=== PATIENT | male | born 1990 | race Caucasian/White ===

== ENCOUNTER 2022-10-26 02:57 | Emergency (ER) | payer OTHER, SELFPAY ==
[2022-10-26 03:01] VITALS: BP 130/82; PULSE 68; RESP 18; TEMP 36.5; O2SAT 100; BMI 28.5
--- NOTE | 2022-10-26 03:07 | CT_ITS ---
[place] [id number] Patient Name: MYRON MALIK MRN: [id number] date: 1990 Sex: M Assigned Patient Location: ER Current Patient Location: ED.MAIN Accession/Order Number: [id number] Exam Date: 10/26/2022 03:24 Report Date: 10/26/2022 03:58 At the request of: BIENVENIDO OSHEA Procedure: CT abdomen pelvis wo con CT abdomen pelvis wo con 10/26/2022 3:24 AM EDT CLINICAL INDICATION: Left flank pain COMPARISON: None. TECHNIQUE: CT of abdomen and pelvis without intravenous contrast. Dose reduction techniques were achieved by using automated exposure control and/or adjustment of mA and/or kV according to patient size and/or use of iterative reconstruction technique. FINDINGS: TUBES AND IMPLANTS: None. LOWER CHEST: Unremarkable ABDOMEN and PELVIS ABDOMINAL WALL AND SOFT TISSUES: Unremarkable. BONES: No suspicious lesions. L3 vertebral hemangioma Multilevel mild degenerative changes of the spine. ARTERIES: No aortoiliac aneurysm. Incompletely evaluated VEINS: Incompletely evaluated LYMPH NODES: Unremarkable. PERITONEUM/ RETROPERITONEUM: Trace pelvic fluid BOWEL: Prominent air-filled loop of sigmoid colon with abnormal angulation and diminished caliber of the upstream segment (series 5, image 42). Low position of the cecum in the pelvis without evidence of obstruction. APPENDIX: Unremarkable LIVER: Unremarkable. GALLBLADDER: Unremarkable. BILE DUCTS: Not dilated SPLEEN: Unremarkable. PANCREAS: Unremarkable. ADRENALS: Unremarkable. KIDNEYS/ URETERS: Unremarkable. REPRODUCTIVE ORGANS: Unremarkable URINARY BLADDER: Unremarkable. CT/CT abdomen pelvis wo con IMPRESSION: No evidence of obstructive uropathy. Prominent air-filled loop of sigmoid colon with abnormal angulation and diminished caliber of the upstream segment, this may represent early sigmoid volvulus and close clinical follow-up is recommended. Low position of the cecum in the pelvis without evidence of obstruction. Abnormal trace pelvic fluid which may be reactive. Electronically authenticated by: ROMERO MEEKS Date: 10/26/2022 03:58
[2022-10-26 03:25] LABS: Basophils Absolute Auto 0.1 10^3/uL (0.0-0.1); Basophils Percent Auto 0.7 % (0.2-2.0); Eosinophils Absolute Auto 0.2 10^3/uL (0.0-0.7); Eosinophils Percent Auto 2.6 % (0.9-7.0); Hematocrit 45.3 % (42.0-54.0); Hemoglobin 15.4 g/dL (14.0-18.0); Immature Granulocytes Abs Auto 0.02 10^3/uL (0.00-0.03); Immature Granulocytes Pct Auto 0.3 % (0.0-0.5); Lymphocytes Absolute Auto 1.3 10^3/uL (1.2-3.8); Lymphocytes Percent Auto 19.7 % (20.5-60.0); Mean Corpuscular Hemoglobin 29.6 pg (25.9-34.0); Mean Corpuscular Volume 87.1 fL (80.0-94.0); Mean Platelet Volume 9.9 fL (9.5-13.5); Monocytes Absolute Auto 0.6 10^3/uL (0.3-0.8); Monocytes Percent Auto 8.2 % (1.7-12.0); Neutrophils Absolute Auto 4.7 10^3/uL (1.4-6.5); Neutrophils Percent Auto 68.5 % (43.0-75.0); Platelet Count 220 10^3/uL (150-450); Red Cell Distribution Width 12.6 % (11.0-15.0); White Blood Count 6.8 10^3/uL (4.0-11.0)
[2022-10-26 03:29] LABS: Bilirubin Urine NEGATIVE (NEGATIVE); Blood Urine NEGATIVE (NEGATIVE); Clarity Urine CLEAR (CLEAR); Color Urine LT. YELLOW (YELLOW); Glucose Urine UA NEGATIVE (NEGATIVE); Ketones Urine NEGATIVE (NEGATIVE); Leukocyte Esterase Urine NEGATIVE (NEGATIVE); Nitrite Urine NEGATIVE (NEGATIVE); Protein Urine NEGATIVE (NEG/TRACE); Urobilinogen Urine 0.2 EU/dL (0.2-1.0); pH Urine 6.5 (5.0-9.0)
[2022-10-26 03:30] LABS: Urine Microscopic Indicated NO
[2022-10-26 03:34] LABS: Anion Gap 6.4; Carbon Dioxide 31.3 mmol/L (21.0-32.0); Chloride 105 mmol/L (98-107); Estimated GFR (African America >60 (>=60); Estimated GFR (Non-African Ame >60 (>=60); Glucose 101 mg/dL (74-106); Potassium 3.7 mmol/L (3.5-5.1); Sodium 139 mmol/L (136-145)
[2022-10-26] MEDS: 0.9 % SODIUM CHLORIDE 1,000 ML 999 ML IV (03:36)
[2022-10-26] MEDS: ONDANSETRON PF 4 MG/2 ML VIAL IV (03:37)
[2022-10-26] MEDS: KETOROLAC TROMETHAMINE 30 MG/ML VIAL IVP (03:37)
--- NOTE | 2022-10-26 04:05 | ED.ABDPAIN1 ---
HPI - Abdominal Pain General Chief Complaint: Abdominal Pain Stated Complaint: ABD PAIN Time Seen by Provider: 10/26/22 03:06 Source: patient Mode of arrival: walk-in Limitations: no limitations History of Present Illness HPI narrative: patient developed pain in the left flank a few days ago. Tonight he felt the pain migrate down into the left lower abdomen and into the left scrotum - no scrotal swelling or bruising and manipulation of the scrotum and testicles had no effect on the pain, he told me. No fever or chills. No change in frequency of urine. No recent injury to the flank, abdomen or scrotum. Related Data Home Medications Medication Instructions Recorded Confirmed No Known Home Medications 10/26/22 10/26/22 Previous Rx's Medication Instructions Recorded nabumetone 750 mg tablet 750 mg PO BID PRN pain #20 tabs 10/26/22 Allergies Allergy/AdvReac Type Severity Reaction Status Date / Time No Known Drug Allergies Allergy Verified 10/26/22 03:06 [facility] Social History Smoking status: Never smoker Exam Narrative Exam Narrative: Nurses notes and vital signs reviewed and patient is not hypoxic. afebrile General: Well-appearing and in no apparent distress. Skin: Warm, dry, no pallor noted. No rash. Head: Normocephalic, atraumatic. Eye: Pupils are equal, round and EOMI. No scleral icterus. Cardiovascular: Regular Rate and Rhythm without murmur, gallop or rub. Respiratory: No accessory muscle use or respiratory distress. Lungs are clear to auscultation, no wheezing, rales or rhonchi Back: No midline thoracic or lumbar vertebral tenderness. No CVA tenderness Musculoskeletal: normal RO GI: Abdomen is soft, non-distended. Normal bowel sounds. No masses appreciated. LLQ tenderness to palpation. No rebound, guarding, or rigidity noted. Neurological: A&O x4. No cranial nerve dysfunction observed. No truncal ataxia. Moves all extremities. Sensation intact. Psychiatric: Cooperative and interactive. Normal mood and affect. Constitutional Vital Signs, click to edit/add: Last Vital Signs Temp 97.7 F 10/26/22 03:01 Pulse 68 10/26/22 03:01 Resp 18 10/26/22 03:01 BP 130/82 10/26/22 03:01 Pulse Ox 100 10/26/22 03:01 Course Vital Signs Vital signs: Vital Signs Temperature 97.7 F 10/26/22 03:01 Pulse Rate 68 10/26/22 03:01 Respiratory Rate 18 10/26/22 03:01 Blood Pressure 130/82 10/26/22 03:01 Pulse Oximetry 100 10/26/22 03:01 Temperature 97.7 F 10/26/22 03:01 Pulse Rate 68 10/26/22 03:01 Respiratory Rate 18 10/26/22 03:01 Blood Pressure 130/82 10/26/22 03:01 Pulse Oximetry 100 10/26/22 03:01 MDM - Abdominal Pain MDM Narrative Medical decision making narrative: . Peripheral IV established and blood and urine sent for testing. The patient had CT scanning of the abdomen pelvis without contrast. He was given normal saline IV fluid, IV Toradol and IV Zofran. Blood and urine tests were negative. The patient's CT scan did not show any evidence of obstructive uropathy or kidney stone. The radiologist ideentified findings that could suggest early volvulus but that is not consistent with the patient's presentation. The patient was informed of results, discharged home with recommendation to maintain a clear liquid diet for next twenty-four hours and to return the emergency Department if he acutely worsened. He was given a prescription for Relafen for pain. Lab Data Attestation: I reviewed the patient's lab results. Labs: Lab Results 10/26/22 10/26/22 Range/Units 03:10 03:15 WBC 6.8 (4.0-11.0) 10^3/uL RBC 5.20 (4.70-6.10) 10^6/uL Hgb 15.4 (14.0-18.0) g/dL Hct 45.3 (42.0-54.0) % MCV 87.1 (80.0-94.0) fL MCH 29.6 (25.9-34.0) pg MCHC 34.0 (29.9-35.2) g/dL RDW 12.6 (11.0-15.0) % Plt Count 220 (150-450) 10^3/uL MPV 9.9 (9.5-13.5) fL Neut % (Auto) 68.5 (43.0-75.0) % Lymph % (Auto) 19.7 L (20.5-60.0) % Cameron % (Auto) 8.2 (1.7-12.0) % Eos % (Auto) 2.6 (0.9-7.0) % Baso % (Auto) 0.7 (0.2-2.0) % Neut # (Auto) 4.7 (1.4-6.5) 10^3/uL Lymph # (Auto) 1.3 (1.2-3.8) 10^3/uL Cameron # (Auto) 0.6 (0.3-0.8) 10^3/uL Eos # (Auto) 0.2 (0.0-0.7) 10^3/uL Baso # (Auto) 0.1 (0.0-0.1) 10^3/uL Abs Immat Gran (auto) 0.02 (0.00-0.03) 10^3/uL Imm/Tot Granulo (auto) 0.3 (0.0-0.5) % Sodium 139 (136-145) mmol/L Potassium 3.7 (3.5-5.1) mmol/L Chloride 105 (98-107) mmol/L Carbon Dioxide 31.3 (21.0-32.0) mmol/L Anion Gap 6.4 BUN 15.0 (7.0-18.0) mg/dL Creatinine 1.25 (0.70-1.30) mg/dL Est GFR ( Amer) >60 (>=60) Est GFR (Non-Af Amer) >60 (>=60) BUN/Creatinine Ratio 12.0 Glucose 101 (74-106) mg/dL Calcium 9.0 (8.5-10.1) mg/dL Urine Color Lt. yellow (YELLOW) Urine Clarity Clear (CLEAR) Urine pH 6.5 (5.0-9.0) Ur Specific [place] 1.020 (1.005-1.025) Urine Protein Negative (NEG/TRACE) mg/dL Urine Glucose (UA) Negative (NEGATIVE) mg/dL Urine Ketones Negative (NEGATIVE) mg/dL Urine Occult Blood Negative (NEGATIVE) Urine Nitrite Negative (NEGATIVE) Urine Bilirubin Negative (NEGATIVE) Urine Urobilinogen 0.2 (0.2-1.0) EU/dL Ur Leukocyte Esterase Negative (NEGATIVE) Imaging Data CT scan - abdomen: Radiologist's impression: Patient Name: MYRON MALIK MRN: [id number] date: 1990 Sex: M Assigned Patient Location: ER Current Patient Location: ED.MAIN Accession/Order Number: [id number] Exam Date: 10/26/2022 03:24 Report Date: 10/26/2022 03:58 At the request of: BIENVENIDO OSHEA Procedure: CT abdomen pelvis wo con CT abdomen pelvis wo con 10/26/2022 3:24 AM EDT CLINICAL INDICATION: Left flank pain COMPARISON: None. TECHNIQUE: CT of abdomen and pelvis without intravenous contrast. Dose reduction techniques were achieved by using automated exposure control and/or adjustment of mA and/or kV according to patient size and/or use of iterative reconstruction technique. FINDINGS: TUBES AND IMPLANTS: None. LOWER CHEST: Unremarkable ABDOMEN and PELVIS ABDOMINAL WALL AND SOFT TISSUES: Unremarkable. BONES: No suspicious lesions. L3 vertebral hemangioma Multilevel mild degenerative changes of the spine. ARTERIES: No aortoiliac aneurysm. Incompletely evaluated VEINS: Incompletely evaluated LYMPH NODES: Unremarkable. PERITONEUM/ RETROPERITONEUM: Trace pelvic fluid BOWEL: Prominent air-filled loop of sigmoid colon with abnormal angulation and diminished caliber of the upstream segment (series 5, image 42). Low position of the cecum in the pelvis without evidence of obstruction. APPENDIX: Unremarkable LIVER: Unremarkable. GALLBLADDER: Unremarkable. BILE DUCTS: Not dilated SPLEEN: Unremarkable. PANCREAS: Unremarkable. ADRENALS: Unremarkable. KIDNEYS/ URETERS: Unremarkable. REPRODUCTIVE ORGANS: Unremarkable URINARY BLADDER: Unremarkable. IMPRESSION: No evidence of obstructive uropathy. Prominent air-filled loop of sigmoid colon with abnormal angulation and diminished caliber of the upstream segment, this may represent early sigmoid volvulus and close clinical follow-up is recommended. Low position of the cecum in the pelvis without evidence of obstruction. Abnormal trace pelvic fluid which may be reactive. Electronically authenticated by: ROMERO MEEKS Date: 10/26/2022 03:58 Discharge Plan Discharge Chief Complaint: Abdominal Pain Clinical Impression: Abdominal pain Patient Disposition: Home, Self-Care Time of Disposition Decision: 04:06 Prescriptions / Home Meds: New nabumetone 750 mg tablet 750 mg PO BID PRN (Reason: pain) Qty: 20 0RF No Action No Known Home Medications Instructions: Clear Liquid Diet (ED), Abdominal Pain (ED) Stand Alone Forms: Portal Instructions Referrals: Physician,Non-Staff, MD [Primary Care Provider] - 1 week
== END 2022-10-26 04:21 | disposition home or self-care (01) ==
PROVIDERS: Emergency Provider Emergency Medicine
DX: N45.3 Epididymo-orchitis (principal); R10.9 Unspecified abdominal pain
CPT/HCPCS: 36415; 74176; 80048; 81003; 85025; 96374; 96375; 99285

== ENCOUNTER 2022-10-26 11:50 | Emergency (ER) | payer OTHER, SELFPAY ==
[2022-10-26 11:54] VITALS: BP 143/81; PULSE 84; RESP 18; TEMP 37.3; O2SAT 98; BMI 28.4
--- NOTE | 2022-10-26 12:22 | ED.GENADUL1 ---
HPI - General Adult General Chief complaint: Urogenital-Male Stated complaint: ABDOMINAL PAIN Time Seen by Provider: 10/26/22 11:54 Source: patient Limitations: no limitations History of Present Illness HPI narrative: [age] furled male here complaining of left testicular pain. He was here last evening and had left flank symptomatology. CT scan and urinalysis was done and they did not find any evidence of stones or infection. Since he was here last night the pain is deftly more in his left testicular area. He states he is in a monogamous relationship and has no urethral drainage or discharge or other symptoms. His is the same he states. He's not had any trauma or injury. Is not any blood in his urine. The pain is particularly noticed when he touches the inferior pole of the left testicle. He has no discomfort on the right testicular area. Related Data Home Medications Medication Instructions Recorded Confirmed No Known Home Medications 10/26/22 10/26/22 Previous Rx's Medication Instructions Recorded nabumetone 750 mg tablet 750 mg PO BID PRN pain #20 tabs 10/26/22 Allergies Allergy/AdvReac Type Severity Reaction Status Date / Time No Known Drug Allergies Allergy Verified 10/26/22 03:06 PFSH PFSH Social History Smoking status: Never smoker Exam Narrative Exam Narrative: awake alert does not appear uncomfortable lying flat. Movement seems to increase the pain. Abdominal examination shows the abdomen is flat soft supple no peritoneal findings. No guarding or rebound. Examination genitalia showed the right hemiscrotal contents to be ccompletely normal with no swelling tenderness or sensitivity. The left testicular area at the inferior pole and posterior aspect he's got a lot of tenderness to palpation. Without palpation really the testicle is nontender. There is no evidence of rotation or torsion clinically. There is no urethral drainage or discharge. The rest the perineum is normal in appearance. Constitutional Vital Signs, click to edit/add: Last Vital Signs Temp 99.2 F 10/26/22 11:54 Pulse 84 10/26/22 11:54 Resp 18 10/26/22 11:54 BP 143/81 H 10/26/22 11:54 Pulse Ox 98 10/26/22 11:54 Course Vital Signs Vital signs: Vital Signs Temperature 99.2 F 10/26/22 11:54 Pulse Rate 84 10/26/22 11:54 Respiratory Rate 18 10/26/22 11:54 Blood Pressure 143/81 H 10/26/22 11:54 Pulse Oximetry 98 10/26/22 11:54 Temperature 99.2 F 10/26/22 11:54 Pulse Rate 84 10/26/22 11:54 Respiratory Rate 18 10/26/22 11:54 Blood Pressure 143/81 H 10/26/22 11:54 Pulse Oximetry 98 10/26/22 11:54 Discharge Plan Discharge Chief Complaint: Urogenital-Male Clinical Impression: Orchitis and epididymitis Patient Disposition: Home, Self-Care Time of Disposition Decision: 12:25 Prescriptions / Home Meds: No Action No Known Home Medications nabumetone 750 mg tablet 750 mg PO BID PRN (Reason: pain) Qty: 20 0RF Additional Instructions: Levaquin 500 mg daily. Cold compresses/rest follow-up with Dr. Duron urologist or return if pain symptoms worsen Stand Alone Forms: Portal Instructions Referrals: Physician,Non-Staff, MD [Primary Care Provider] - 1 week
== END 2022-10-26 12:38 | disposition home or self-care (01) ==
PROVIDERS: Emergency Provider Emergency Medicine Emergency Medical Services
DX: N45.3 Epididymo-orchitis (principal)
CPT/HCPCS: 99285

== ENCOUNTER 2022-12-27 19:01 | Outpatient (OUT) | payer OTHER, SELFPAY ==
--- NOTE | 2022-12-27 | US_ITS ---
The [address] [address] Patient Name: MYRON MALIK MRN: [id number] date: 1990 Sex: M Assigned Patient Location: US Current Patient Location: Accession/Order Number: [id number] Exam Date: 12/27/2022 19:00 Report Date: 12/28/2022 07:30 At the request of: MARIANNE NUÑEZ Procedure: US scrotum EXAMINATION: US scrotum HISTORY: PAIN IN LEFT TESTICLE N 50.812 COMPARISON: No relevant comparison available. TECHNIQUE: High-resolution sonographic imaging of the scrotum and contents was performed. FINDINGS: The right testicle is normal in size, contour and echotexture measuring 4.0 x 2.2 x 2.1 cm. No focal mass. Normal color and Doppler flow. The right epididymis is normal in size. Several areas of anechoic echogenicity measuring up to 3 mm, epididymal cyst. Small right hydrocele. No right varicocele. The left testicle is normal in size, contour and echotexture measuring 4.1 x 1.9 x 2.6 cm. No focal mass. Normal color and Doppler flow. The left epididymis is normal in size. Several areas of anechoic echogenicity measuring up to 7 mm, epididymal cyst. Small right hydrocele. No right varicocele. US/US scrotum IMPRESSION: No evidence of testicular torsion Small bilateral hydroceles Electronically authenticated by: BAN HERNANDEZ Date: 12/28/2022 07:30
== END 2022-12-27 19:02 | disposition home or self-care (01) ==
LOC: US 19:01
PROVIDERS: PCP Internal Medicine; Visit Provider Urology
DX: N50.812 Left testicular pain (principal); N43.3 Hydrocele, unspecified
CPT/HCPCS: 76870

== ENCOUNTER 2023-07-12 07:12 | Outpatient (OUT) | payer OTHER, SELFPAY ==
--- OUTSIDE RECORDS SUMMARY | 2023-07-12 07:14 | XMS_ITS | CCD ---
Author Organization [facility] Care Team Providers Care Belt Sander Name Role Phone GRZEGORZ CASTANEDA Primary Care Physician Grzegorz Castaneda Unavailable Sergio NUÑEZ Attending Unavailable Sergio NUÑEZ Attending Unavailable Sergio NUÑEZ Attending Unavailable Allergies Allergy Classification Reported Allergen(s) Allergy Type Date of Onset Reaction(s) Facility (1 source) No Known Medication Allergies; Translations: [No Known Medication Allergies] Propensity to adverse reactions (disorder) [facility] Repository Medications Current Medications Medication Drug Class(es) Dates Sig (Normalized) Sig (Original) levoFLOXacin 500 mg oral tablet (1 source) Quinolone Antimicrobial Start: 11-05-2022 take 1 tablet by mouth once daily Levaquin 500 mg Tab 500 mg = 1 tab(s), Oral, Daily, # 14 tab(s), Refills(s) 0, Pharmacy: [id number], 183, cm, 11/05/22 10:46:00 EDT, Height/Length Dosing, 95.5, kg, 11/05/22 10:46:00 EDT, Weight Dosing Start Date: 11/05/22 Status: Ordered Completed/Discontinued Medications Medication Drug Class(es) Dates Sig (Normalized) Sig (Original) azithromycin 250 mg oral tablet (1 source) Macrolide Antimicrobial Start: 11-10-2020 take 1 tablet by mouth once daily Azithromycin 250 MG Azithromycin 250MG, 2 (two) Tablet today followed by 1 daily # 6, 11/10/2020, No Refill. Active Oral today followed by 1 daily for 5 Oct, Not-Taking Problems Active Problems Problem Classification Problem Date Documented Da te Episodic/Chronic Anxiety disorders (2 sources) Generalized anxiety disorder; Translations: [Generalized anxiety disorder] 07-04-2023 Chronic Esophageal disorders (1 source) Esophageal reflux finding; Translations: [Esophageal reflux] Onset: 08-10-2014 Chronic Inflammatory conditions of male genital organs (7 sources) Epididymitis; Translations: [Epididymitis] Onset: 11-05-2022 Episodic Other gastrointestinal disorders (1 source) Dysphagia; Translations: [Dysphagia, unspecified] 07-04-2023 Episodic Other gastrointestinal disorders (1 source) Dysphagia, unspecified; Translations: [Dysphagia, unspecified] 07-04-2023 Episodic Other male genital disorders (2 sources) Pain of left testicle 11-05-2022 Episodic Residual codes; unclassified (1 source) Insomnia; Translations: [Insomnia, unspecified] 07-04-2023 Episodic Residual codes; unclassified (1 source) Insomnia, unspecified; Translations: [Insomnia, unspecified] 07-04-2023 Episodic Viral infection (1 source) Disease caused by 2019-nCoV; Translations: [COVID-19] Past or Other Problems Problem Classification Problem Date Documented Da te Episodic/Chronic Cardiac dysrhythmias (1 source) Palpitations; Translations: [Palpitations] Onset: 08-10-2014 Episodic Nonspecific chest pain (1 source) Chest pain; Translations: [Other chest pain] Onset: 05-08-2016 Resolved: 11-10-2020 Episodic Results Test Name Value Interpretation Reference Range Facil ity Ambulatory Visit Summaryon 1 03-10-2022 Ambulatory Visit Summary HELENAMYRON :1990 Visit Date:01/08/2023 Ambulatory Visit Instructions Your Diagnosis Epididymitis Tests Performed Urnls Dip Stick Auto w/o Microscopy POC 10405 Your Care Team Attending Physician - Sergio NUÑEZ MD Primary Care Physician - GRZEGORZ CASTANEDA DO Procedures Performed None. Discharge Vitals Heart Rate (Peripheral) 72 Blood Pressure 144/90 Height 72 in Height 183 cm Weight 210.1 lb Weight 95.5 kg BMI 28.52 What to do next You Need to Schedule the Following Appointments Follow Up with JOAQUIN TENA, Sergio Morrison, [place] When: Comments: PRN Where: [facility] [address] , [place] [address]- Test Results Urnls Dip Stick Auto w/o Microscopy POC 15226 (01/08/2023) Bilirubin Urine Dipstick - Negative Blood Urine Dipstick - Negative Glucose Urine Dipstick - Negative Ketones Urine Dipstick - Negative Leukocytes Urine Dipstick - Negative Nitrite Urine Dipstick - Negative Protein Urine Dipstick - Negative Specific [place] Urine Dipstick - 1.015 Urine Appearance Urine Dipstick - Clear Urine Color Urine Dipstick - Yellow Urobilinogen Urine Dipstick - Normal 0.2-1 EU/dl pH Urine Dipstick - 7 Medications and Immunizations Administered Not Given influenza virus vaccine, inactivated, Patient Refuses SARS-CoV-2 mRNA (tozinameran 5y-11y) vac, Patient Refuses Allergies No Known Medication Allergies Problems Ongoing - Any problem that you are currently receiving treatment for. Epididymitis Orchitis Pain in left testicle Patient Survey You may receive a survey via text or e-mail asking about your office visit. Please share your experience with us by completing your survey. We appreciate your feedback and thank you for choosing us for your care. Education Materials Testicular Self-Exam A self-examination of your testicles (testicular self-exam) involves looking at and feeling your testicles for abnormal lumps or swelling. Several things can cause swelling, lumps, or pain in your testicles. Some of these causes are: ? Injuries. ? Inflammation. ? Infection. ? Buildup of fluids around the testicle (hydrocele). ? Twisted testicles (testicular torsion). ? Testicular cancer. You may be at risk for testicular cancer if you have: ? An undescended testicle (cryptorchidism). ? A history of previous testicular cancer. ? A family history of testicular cancer. General tips and recommendations ? The testicles are easiest to examine after a warm bath or shower. They are more difficult to examine when you are cold because the muscles attached to the testicles retract and pull them up higher or into the abdomen. ? A normal testicle is egg-shaped and feels firm. It is smooth and not tender. ? It is normal to feel a firm, spaghetti-like cord at the back of your testicle. This is the spermatic cord. How to do a testicular self-exam 1. Stand and hold your penis away from your body. 2. Look at each testicle to check for changes in appearance, such as swelling or changes in size or shape. 3. Roll each testicle between your thumb and forefinger, feeling the entire testicle. Feel for: ? Lumps. ? Swelling. ? Discomfort. 4. Check the groin area between your abdomen and upper thighs on both sides of your body. Look and feel for any swelling or bumps that are tender. These could be enlarged lymph nodes. Contact a health care provider if: ? You find any bumps or lumps, such as a small, hard, pea-sized lump. ? You find swelling, pain, or soreness. ? You see or feel any other changes in your testicles. Summary ? A self-examination of your testicles (testicular self-exam) involves looking at and feeling your testicles for any changes. ? Check each of your testicles for lumps, swelling, or discomfort. These changes can be caused by many things. ? Check for swelling or tender bumps in your groin area between your lower abdomen and upper thighs. This information is not intended to replace advice given to you by your health care provider. Make sure you discuss any questions you have with your health care provider. Document Revised: 01/18/2020 Document Reviewed: 01/18/2020 [employer] Patient Education ? 2022 [employer] Normal [facility] Patient Educationon 01-09-20 Patient Education Urology Testicular Self-Exam A self-examination of your testicles (testicular self-exam) involves looking at and feeling your testicles for abnormal lumps or swelling. Several things can cause swelling, lumps, or pain in your testicles. Some of these causes are: ? Injuries. ? Inflammation. ? Infection. ? Buildup of fluids around the testicle (hydrocele). ? Twisted testicles (testicular torsion). ? Testicular cancer. You may be at risk for testicular cancer if you have: ? An undescended testicle (cryptorchidism). ? A history of previous testicular cancer. ? A family history of testicular cancer. General tips and recommendations ? The testicles are easiest to examine after a warm bath or shower. They are more difficult to examine when you are cold because the muscles attached to the testicles retract and pull them up higher or into the abdomen. ? A normal testicle is egg-shaped and feels firm. It is smooth and not tender. ? It is normal to feel a firm, spaghetti-like cord at the back of your testicle. This is the spermatic cord. How to do a testicular self-exam 1. Stand and hold your penis away from your body. 2. Look at each testicle to check for changes in appearance, such as swelling or changes in size or shape. 3. Roll each testicle between your thumb and forefinger, feeling the entire testicle. Feel for: ? Lumps. ? Swelling. ? Discomfort. 4. Check the groin area between your abdomen and upper thighs on both sides of your body. Look and feel for any swelling or bumps that are tender. These could be enlarged lymph nodes. Contact a health care provider if: ? You find any bumps or lumps, such as a small, hard, pea-sized lump. ? You find swelling, pain, or soreness. ? You see or feel any other changes in your testicles. Summary ? A self-examination of your testicles (testicular self-exam) involves looking at and feeling your testicles for any changes. ? Check each of your testicles for lumps, swelling, or discomfort. These changes can be caused by many things. ? Check for swelling or tender bumps in your groin area between your lower abdomen and upper thighs. This information is not intended to replace advice given to you by your health care provider. Make sure you discuss any questions you have with your health care provider. Document Revised: 01/18/2020 Document Reviewed: 01/18/2020 [employer] Patient Education ? 2022 [employer] [facility] Urology Office/Clinic Noteon 01-08-2023 Urology Office/Clinic Note Chief Complaint 2 month follow up HPI Staff 2 month follow up w/Scrotum US done 12/27/22-[facility]. Previous DX: epididymitis, orchitis, pain in testicle. Dysuria: denies pain or burning Incomplete bladder emptying: denies Hematuria: denies visible blood Frequency: denies Urgency: denies Nocturia: denies Stream: denies hesitancy, denies weak stream Leaking: denies Post void dripping: denies Wearing pads/ Depends: denies Urge incontinence: denies Stress incontinence: denies Incontinence without Sensory Awareness: denies Abdominal pain: denies Flank pain: denies Sexual complaints: denies History of Present Illness Tests reviewed: reviewed UA and Scrotal US. I have reviewed the previous health record information and history for this patient from . I have reviewed and verified the staff HPI to be accurate for this encounter. There have been no associated fever, chills, flank pain, or blood in the urine. Denies any urinary infections since last encounter. Review of Systems PHQ Score Initial Depression Screen Score: 0 SCORE ROS - Provider Constitutional: denies weight loss, denies hot flashes. Eyes: denies eye problems. Gastrointestinal: denies nausea, denies vomiting. Cardiovascular: denies chest pain or angina. Integumentary: no dryness Musculoskeletal: denies musculoskeletal symptoms. ENMT: denies otolaryngeal symptoms. Respiratory: no shortness of breath. Heme/Lymph: denies easy bleeding tendency, denies easy bruising tendency. Psychiatric: no confusion, no anxiety. Genitourinary: See HPI. Physical Exam Vitals & Measurements HR: 72(Peripheral) BP: 144/90 HT: 72 in HT: 183 cm WT: 95.5 kg WT: 210.1 lb BMI: 28.52 General Appearance: alert, no distress, well nourished, well developed male. Genitourinary: normal scrotum, normal testes, normal urethra, normal epididymis, normal vas deferens/spermatic cord. Assessment/Plan 1. Epididymitis (N45.1: Epididymitis) Pt went to [facility] ER on 10/26/22 pain lower back on the left side traveled to pelvis and abdomen area left side, then toward left testicle when he would void. Denies pain and swelling in left testicle. Pt went back to ER pt has a prescribed Levaquin [id number] has finished this medication yesterday. Hasn't had any pain meds in the 24 hours. Pt states that his left testicle was tender to the touch, he had no swelling or discoloration. CT SCAN 10/26/22 - no signs of obstructive uropathy, abnormal trace pelvic fluid which may be reactive. Pt had taken Levaquin 500mg QD x14 days. Scrotal US 12/27/22 - epididymal cyst measuring 3mm on the Rt and 7mm on the Lt, small BL hydrocele. UA today is negative for blood and infection. PE 11/05/22:firmness at the tail of the Lt epididymis, indurated 2cm area, difficult to tell if it is separate from the testicle PE today: everything is normal Pt states that he no longer has pain and noticed the swelling had gone down since finishing the abx. Advised pt that he should make sure he empties his bladder every day every 2-3 hours to prevent any further epididymitis. Follow up in as needed. All questions/concerns were discussed. Pt to call the office if he encounters any issues prior. Pt acknowledges understanding. -Timed Voids. Follow-up With When Contact Information JOAQUIN TENA, Sergio Morrison, URL [facility] [address], [place] [address]- Additional Instructions: PRN Patient Education Testicular Self-Exam I, Catherine Tello , personally scribed for Dr. Nuñez on 01/08/2023 10:32:44. . Portions of this record may have been created with voice recognition artificial intelligence software, specifically [employer], [employer] and or [employer]. Substitutions may have occurred due to the inherent limitations of voice recognition and artificial intelligence software. Documentation recorded by the scribe, Catherine Tello, accurately reflects the services(s) I performed and decisions made by me. Problem List/Past Medical History Ongoing Epididymitis Orchitis Pain in left testicle Historical No qualifying data Procedure/Surgical History None. Medications No active medications Allergies No Known Medication Allergies Social History Tobacco Never (less than 100 in lifetime) Tobacco Use:. Never Smokeless Tobacco Use:., 01/08/2023 Family History Heart disease: Brother. Hypertension: Grandparent. Immunizations Vaccine Date Status Comments influenza virus vaccine, inactivated - Not Given Patient Refuses SARS-CoV-2 mRNA (tojaimeenameran 5y-11y) vac - Not Given Patient Refuses measles/mumps/rubella virus vaccine 05/14/2000 Recorded DTaP, unspecified formulation 04/03/1993 Recorded Hib, unspecified formulation 10/25/1989 Recorded measles/mumps/rubella virus vaccine 06/24/1989 Recorded Lab Results Ambulatory Point of Care Results Bilirubin Urine Dipstick (more content not included)... Normal [facility] Comment on above: Result Comment: Elec tronically Signed By: JOAQUIN TENA, Sergio Morrison\.br\Date and Time Signed: 01/08/23 10:35 EST\.br\Electronically Co-Signed By: Catherine Tello\.br\Date and Time Co-Signed: 01/08/23 10:33 EST RAD - Ultrasound Reporton RAD - Ultrasound Report [id number] 0TIFF [facility] ED Note-Physicianon 11-07-19 ED Note-Physician [id number] 0CD:127 [facility] RAD - CT Reporton 11-06-2022 RAD - CT Report [id number] CD:127 [facility] Ambulatory Visit Summaryon 0 11-05-2022 Ambulatory Visit Summary MYRON MALIK :1990 Visit Date:11/05/2022 Ambulatory Visit Instructions Your Diagnosis Epididymitis Tests Performed Urnls Dip Stick Auto w/o Microscopy POC 07023 US Scrotum (Contents) -- Results Pending -- Please visit your patient portal for your results or contact your primary care physician. Your Care Team Attending Physician - Sergio NUÑEZ MD Primary Care Physician - GRZEGORZ CASTANEDA DO This Is Your Medications List levofloxacin (Levaquin 500 mg Tab) Procedures Performed None. Discharge Vitals Heart Rate (Peripheral) 65 Blood Pressure 129/93 Height 183 cm Height 72 in Weight 95.5 kg Weight 210.1 lb BMI 28.52 What to do next Scheduled Follow-Up Appointments Saturday 10:30 AM EST With: Sergio NUÑEZ MD Where: [facility] Formson 11-05-2022 Forms [id number] 0CD:127 [facility] Patient Educationon 11-06-19 Patient Education Obstetrics and Gynecology How to Take a Sitz Bath A sitz bath is a warm water bath that may be used to care for your rectum, genital area, or the area between your rectum and genitals (perineum). In a sitz bath, the water only comes up to your hips and covers your buttocks. A sitz bath may be done in a bathtub or with a portable sitz bath that fits over the toilet. Your health care provider may recommend a sitz bath to help: ? Relieve pain and discomfort after delivering a baby. ? Relieve pain and itching from hemorrhoids or anal fissures. ? Relieve pain after certain surgeries. ? Relax muscles that are sore or tight. How to take a sitz bath Take 3?4 sitz baths a day, or as many as told by your health care provider. Bathtub sitz bath To take a sitz bath in a bathtub: 1. Partially fill a bathtub with warm water. The water should be deep enough to cover your hips and buttocks when you are sitting in the tub. 2. Follow your health care provider's instructions if you are told to put medicine in the water. 3. Sit in the water. Open the tub drain a little, and leave it open during your bath. 4. Turn on the warm water again, enough to replace the water that is draining out. Keep the water running throughout your bath. This helps keep the water at the right level and temperature. 5. Soak in the water for 15?20 minutes, or as long as told by your health care provider. 6. When you are done, be careful when you stand up. You may feel dizzy. 7. After the sitz bath, pat yourself dry. Do not rub your skin to dry it. [id number] sitz bath To take a sitz bath with an [id number] basin: 1. Follow the vending mechanic's instructions. 2. Fill the basin with warm water. 3. Follow your health care provider's instructions if you were told to put medicine in the water. 4. Sit on the seat. Make sure the water covers your buttocks and perineum. 5. Soak in the water for 15?20 minutes, or as long as told by your health care provider. 6. After the sitz bath, pat yourself dry. Do not rub your skin to dry it. 7. Clean and dry the basin between uses. 8. Discard the basin if it cracks, or according to the vending mechanic's instructions. Contact a health care provider if: ? Your pain or itching gets worse. Do not continue with sitz baths if your symptoms get worse. ? You have new symptoms. Do not continue with sitz baths until you talk with your health care provider. Summary ? A sitz bath is a warm water bath in which the water only comes up to your hips and covers your buttocks. ? A sitz bath may help relieve pain and discomfort after delivering a baby. It also may help with pain and itching from hemorrhoids or anal fissures, or pain after certain surgeries. It can also help to relax muscles that are sore or tight. ? Take 3?4 sitz baths a day, or as many as told by your health care provider. Soak in the water for 15?20 minutes. ? Do not continue with sitz baths if your symptoms get worse. This information is not intended to replace advice given to you by your health care provider. Make sure you discuss any questions you have with your health care provider. Document Revised: 10/25/2020 Document Reviewed: 10/27/2020 [employer] Patient Education ? 2022 [employer] Urology Testicular Self-Exam A self-examination of your testicles (testicular self-exam) involves looking at and feeling your testicles for abnormal lumps or swelling. Several things can cause swelling, lumps, or pain in your testicles. Some of these causes are: ? Injuries. ? Inflammation. ? Infection. ? Buildup of fluids around the testicle (hydrocele). ? Twisted testicles (testicular torsion). ? Testicular cancer. You may be at risk for testicular cancer if you have: ? An undescended testicle (cryptorchidism). ? A history of previous testicular cancer. ? A family history of testicular cancer. General tips and recommendations ? The testicles are easiest to examine after a warm bath or shower. They are more difficult to examine when you are cold because the muscles attached to the testicles retract and pull them up higher or into the abdomen. ? A normal testicle is egg-shaped and feels firm. It is smooth and not tender. ? It is normal to feel a firm, spaghetti-like cord at the back of your testicle. This is the spermatic cord. How to do a testicular self-exam 1. Stand and hold your penis away from your body. 2. Look at each testicle to check for changes in appearance, such as swelling or changes in size or shape. 3. Roll each testicle between your thumb and forefinger, feeling the entire testicle. Feel for: ? Lumps. ? Swelling. ? Discomfort. 4. Check the groin area between your abdomen and upper thighs on both sides of your body. Look and feel for any swelling or bumps that are tender. These could be enlarged lymph nodes. Contact a health care p (more content not included)... Normal [facility] Urology Office/Clinic Noteon 11-05-2022 Urology Office/Clinic Note Chief Complaint New Pt HPI Staff ER F/U. Never been seen in our office before. Pt went to [facility] ER on 10/26/22 pain lower back on the left side traveled to pelvis and abdomen area left side, then toward left testicle. Denies pain and swelling in left testicle. Pt went back to ER pt has a prescribed Levaquin-pt has finished this medication yesterday. Espinoza't had any pain meds in the [address] SCAN done 10/26/22 Dysuria: denies pain or burning Incomplete bladder emptying: denies Hematuria: denies visible blood Frequency: denies Urgency: denies Nocturia: once in awhile Stream: denies hesitancy, denies weak stream Leaking: denies Post void dripping: denies Wearing pads/ Depends: denies Urge incontinence: denies Stress incontinence: Xavi Incontinence without Sensory Awareness: denies Abdominal pain: has some discomfort on left sided Flank pain: denies Sexual complaints: denies History of Present Illness Tests reviewed: reviewed UA and External Records. I have reviewed the previous health record information and history for this patient from . I have reviewed and verified the staff HPI to be accurate for this encounter. There have been no associated fever, chills, flank pain, or blood in the urine. Denies any urinary infections since last encounter. Review of Systems PHQ Score Initial Depression Screen Score: 0 ROS - Provider Constitutional: denies weight loss, denies hot flashes. Eyes: denies eye problems. Gastrointestinal: denies nausea, denies vomiting. Cardiovascular: denies chest pain or angina. Integumentary: no dryness Musculoskeletal: denies musculoskeletal symptoms. ENMT: denies otolaryngeal symptoms. Respiratory: no shortness of breath. Heme/Lymph: denies easy bleeding tendency, denies easy bruising tendency. Psychiatric: no confusion, no anxiety. Genitourinary: See HPI. Physical Exam Vitals & Measurements HR: 65(Peripheral) BP: 129/93 HT: 72 in HT: 183 cm WT: 95.5 kg WT: 210.1 lb BMI: 28.52 General Appearance: alert, no distress, well nourished, well developed male. Head: normocephalic . Eyes: normal orbit and globe. ENMT: normal examination of external ears. Chest: Lungs CTA, respirations non labored. Cardiovascular: regular rate and rhythm. Abdomen: soft, non distended, no tenderness, no mass or organomegaly, no hernia. Genitourinary: normal scrotum, normal testes, normal urethra, firmness at the tail of the Lt epididymis, indurated 2cm area, difficult to tell if it is separate from the testicle epididymis, normal vas deferens/spermatic cord. Flank Pain: none. Bladder: nonpalpable. Penis: normal shaft, normal glans. Lymph Nodes: unremarkable palpation of the cervical area. Skin: warm, dry, no bruising. Psychiatric: cooperative, affect appropriate for age, normal judgement, euthymic mood. Assessment/Plan 1. Epididymitis (N45.1: Epididymitis) Pt went to [facility] ER on 10/26/22 pain lower back on the left side traveled to pelvis and abdomen area left side, then toward left testicle when he would void. Denies pain and swelling in left testicle. Pt went back to ER pt has a prescribed Levaquin [id number] has finished this medication yesterday. Hasn't had any pain meds in the 24 hours. Pt states that his left testicle was tender to the touch, he had no swelling or discoloration. CT SCAN 10/26/22 - no signs of obstructive uropathy, abnormal trace pelvic fluid which may be reactive. Pt states that he did not have urinary sxs, only abdominal pain. he did not pass any stone. Pt states that on the 3rd or 4th day of being on the abx, he noticed the pain decrease. Pt states that he never had any urinary sxs prior to this episode of pain, felt he emptied completely, would void x3-4hrs, denies any leakage. Pt states that he does self exam on occasion. Discussed getting a Scrotal US done. Discussed starting a longer dose of abx. Advised pt to eat yogurt to prevent any SE's. Advised pt that this could be caused by not voiding regularly and waiting too long in between voids. Advised pt to stat timed voids. Advised pt that this is inflammatory sxs of the epididymis. Advised pt that this is not likely testicular cancer, but since a clear separation cannot be demonstrated from mass and testicle, he will need a scrotal echo. UA today is negative for blood and infection. PE:firmness at the tail of the Lt epididymis, indurated 2cm area, difficult to tell if it is separate from the testicle -Will order Scrotal US. -Will send Levaquin 500mg QD x14 days. Discussed the medication side effects, and the patient will monitor closely for these, as well as for symptom improvement. If severe side effects occur, the medication should be stopped and the office notified. -Start Timed Voids. Follow up in 2 mos w/Srcotal US. All questions/concerns were discussed. Pt to call the office if he encounters any issues prior. Pt acknowledges understanding. Follow-up With When Contact Information JOAQUIN TENA, (more content not included)... Normal [facility] Comment on above: Result Comment: Elec tronically Signed By: Sergio NUÑEZ MD\.br\Date and Time Signed: 11/05/22 11:35 EDT\.br\Electronically Co-Signed By: Catherine Tello.br\Date and Time Co-Signed: 11/05/22 11:20 EDT Vital Signs Date Time Vital Sign Value Performing Clinician Facility 07-04-2023 10:36040 Body height 182.88 cm [facility] 07-04-2023 10:36040 Body mass index (BMI) [Ratio] 29.1 kg/m2 [facility] 07-04-2023 10:36040 Body weight 97.52 kg [facility] 07-04-2023 10:36040 Diastolic blood pressure 87 mm[Hg] [facility] 07-04-2023 10:36-0400 Heart rate 69 /min [facility] 07-04-2023 10:36-0400 Respiratory rate 12 /min [facility] 07-04-2023 10:36-0400 Systolic blood pressure 125 mm[Hg] [facility] 01-08-2023 10:02-0500 Diastolic blood pressure 90 mm[Hg] Sergio NUÑEZ [facility] 01-08-2023 10:02-0500 Mean blood pressure 108 mm[Hg] Sergio NUÑEZ [facility] 01-08-2023 10:02-0500 Systolic blood pressure 144 mm[Hg] Sergio NUÑEZ [facility] 01-08-2023 09:52-0500 Blood Pressure Location Sergio NUÑEZ [facility] 01-08-2023 09:52-0500 Diastolic blood pressure 100 mm[Hg] Sergio NUÑEZ [facility] 01-08-2023 09:52-0500 Heart rate 72 /min Sergio NUÑEZ [facility] 01-08-2023 09:52-0500 Systolic blood pressure 144 mm[Hg] Sergio NUÑEZ [facility] 11-28-2022 14:00-0400 Body height 182.88 cm Grzegorz Castaneda Other [employer] [facility] [employer] Other 11-28-2022 14:00-0400 Body mass index (BMI) [Ratio] 29.32 kg/m2 Grzegorz Ball Other [employer] [facility] [employer] Other 11-28-2022 14:00-0400 Body weight 98.07 kg Grzegorz Castaneda Other [employer] Other 11-28-2022 14:00-0400 Diastolic blood pressure 79 mm[Hg] Grzegorz Castaneda Other [employer] Other 11-28-2022 14:00-0400 Respiratory rate 12 /min Grzegorz Castaneda Other [employer] Other 11-28-2022 14:00-0400 Systolic blood pressure 124 mm[Hg] Grzegorz Castaneda Other [employer] Other 11-05-2022 10:27-0400 Blood Pressure Location Sergio NUÑEZ [facility] 11-05-2022 10:27-0400 Diastolic blood pressure 93 mm[Hg] Sergio NUÑEZ [facility] 11-05-2022 10:27-0400 Heart rate 65 /min Sergio NUÑEZ [facility] 11-05-2022 10:27-0400 Systolic blood pressure 129 mm[Hg] Sergio NUÑEZ [facility] Encounters Encounter Date Encounter Type Care Provider Facility Start: 07-04-2023 End: 07-04-2023 ambulatory [facility] Work Phone: Start: 07-04-2023 End: 07-04-2023 Patient encounter procedure [facility]ANABELLA Castaneda [facility] Work Phone: Start: 01-08-2023 End: 01-09-2023 ambulatory Sergio NUÑEZ Facility:[facility] Start: 01-08-2023 End: 01-08-2023 Patient encounter procedure Sergio NUÑEZ [facility] Start: 01-07-2023 ambulatory Sergio NUÑEZ Facili ty:[facility] Start: 11-28-2022 End: 11-28-2022 ambulatory Grzegorz Castaneda Other [facility] [employer] Other Start: 11-28-2022 Encounter for genera l adult medical examination without abnormal findings Grzegorz Castaneda [facility] Start: 11-28-2022 Periodic preventive med est patient 18-39 yrs Grzegorz Castaneda [facility] Start: 11-05-2022 End: 11-06-2022 ambulatory Sergio NUÑEZ Facility:[facility] Start: 11-05-2022 End: 11-05-2022 Patient encounter procedure [facility] Start: 10-30-2022 ambulatory Sergio NUÑEZ Facility :[facility] Procedures Date Procedure Procedure Detail Performing Clinician None (qualifier value) Kimberyln NUÑEZ Plan of Treatment Date Care Activity Detail Author [facility] Immunizations Immunization Date Immunization Notes Care Provider Haley basurto 05-14-2000 measles, mumps and rubella virus vaccine Sergio NUÑEZ [facility] 04-03-1993 DTaP, unspecified formulation Sergio NUÑEZ [facility] 10-25-1989 Hib, unspecified formulation Sergiokristel NUÑEZ [facility] 06-24-1989 measles, mumps and rubella virus vaccine Sergiokristel UNÑEZ [facility] NEGATED: Highlighted row has not occurred!01-08-2023 influenza virus vaccine, unspecified formulation Sergiokristel NUÑEZ [facility] NEGATED: Highlighted row has not occurred!01-08-2023 SARS-CoV-2 mRNA (tozinameran 5y-11y) vaccine Sergio NUÑEZ [facility] Payers Date Payer Category Payer Unknown [id number] 2020 Unknown [id number] 1988 Unknown [id number] 1988 Unknown [id number] 1988 Unknown [id number] Social History Date Type Detail Facility Start: 11-05-2022 End: 01-08-2023 Tobacco smoking status Never smoked tobacco (finding) [facility] Tobacco smoking status Never [facility] Sex Assigned At Male [facility] Start: 1990 Sex Assigned At Male F [facility] Functional Status Date Assessment Result Facility 01-08-2023 Functional Status N/A [facility] 11-05-2022 Functional Status N/A [facility] Discharge instructions 01-08-2023 Note Date & Type Note Facility 01-08-2023 Hospital Discharg e instructions Patient Education 01/08/2023 10:32:04 Testicular Self-Exam Testicular Self-Exam A self-examination of your testicles (testicular self-exam) involves looking at and feeling your testicles for abnormal lumps or swelling. Several things can cause swelling, lumps, or pain in your testicles. Some of these causes are: Injuries. Inflammation. Infection. Buildup of fluids around the testicle (hydrocele). Twisted testicles (testicular torsion). Testicular cancer. You may be at risk for testicular cancer if you have: ?An undescended testicle (cryptorchidism). ?A history of previous testicular cancer. ?A family history of testicular cancer. General tips and recommendations The testicles are easiest to examine after a warm bath or shower. They are more difficult to examine when you are cold because the muscles attached to the testicles retract and pull them up higher or into the abdomen. A normal testicle is egg-shaped and feels firm. It is smooth and not tender. It is normal to feel a firm, spaghetti-like cord at the back of your testicle. This is the spermatic cord. How to do a testicular self-exam 1.Stand and hold your penis away from your body. 2.Look at each testicle to check for changes in appearance, such as swelling or changes in size or shape. 3.Roll each testicle between your thumb and forefinger, feeling the entire testicle. Feel for: Lumps. Swelling. Discomfort. 4.Check the groin area between your abdomen and upper thighs on both sides of your body. Look and feel for any swelling or bumps that are tender. These could be enlarged lymph nodes. Contact a health care provider if: You find any bumps or lumps, such as a small, hard, pea-sized lump. You find swelling, pain, or soreness. You see or feel any other changes in your testicles. Summary A self-examination of your testicles (testicular self-exam) involves looking at and feeling your testicles for any changes. Check each of your testicles for lumps, swelling, or discomfort. These changes can be caused by many things. Check for swelling or tender bumps in your groin area between your lower abdomen and upper thighs. This information is not intended to replace advice given to you by your health care provider. Make sure you discuss any questions you have with your health care provider. Document Revised: 01/18/2020 Document Reviewed: 01/18/2020 [employer] Patient Education 2022 [employer] Follow Up Care 12/14/2022 10:33:52 With:JOAQUIN TENA, Sergio Morrison, URL Address: [facility] [address] , [place] [address]- When: Unknown Comments:PRN [facility] Evaluation note 10-04-2023 Note Date & Type Note Facility 11-28-2022 Evaluation note Encounter Date Diagnosis Assessment Notes Nov, Wellness examination (ICD-10 - Z00.00) Healthy diet and exercise. Reviewed age-appropria te preventive testing recommended. BS normal CHol normal Nov, Epididymitis (ICD-10 - N45.1) Symptoms resolved as expected on antibiotics. Scrotal US scheduled soon. f/u as needed [facility] Other Hospital Discharge instructions 11-05-2022 Note Date & Type Note Facility 11-05-2022 Hospital Discharg e instructions Patient Education 11/05/2022 11:15:53 How to Take a Sitz Bath How to Take a Sitz Bath A sitz bath is a warm water bath that may be used to care for your rectum, genital area, or the area between your rectum and genitals (perineum). In a sitz bath, the water only comes up to your hips and covers your buttocks. A sitz bath may be done in a bathtub or with a portable sitz bath that fits over the toilet. Your health care provider may recommend a sitz bath to help: Relieve pain and discomfort after delivering a baby. Relieve pain and itching from hemorrhoids or anal fissures. Relieve pain after certain surgeries. Relax muscles that are sore or tight. How to take a sitz bath Take 3 4 sitz baths a day, or as many as told by your health care provider. Bathtub sitz bath To take a sitz bath in a bathtub: 1.Partially fill a bathtub with warm water. The water should be deep enough to cover your hips and buttocks when you are sitting in the tub. 2.Follow your health care provider's instructions if you are told to put medicine in the water. 3.Sit in the water. Open the tub drain a little, and leave it open during your bath. 4.Turn on the warm water again, enough to replace the water that is draining out. Keep the water running throughout your bath. This helps keep the water at the right level and temperature. 5.Soak in the water for 15 20 minutes, or as long as told by your health care provider. 6.When you are done, be careful when you stand up. You may feel dizzy. 7.After the sitz bath, pat yourself dry. Do not rub your skin to dry it. [id number] sitz bath To take a sitz bath with an bpzq-[id number]-[id number] basin: 1.Follow the vending mechanic's instructions. 2.Fill the basin with warm water. 3.Follow your health care provider's instructions if you were told to put medicine in the water. 4.Sit on the seat. Make sure the water covers your buttocks and perineum. 5.Soak in the water for 15 20 minutes, or as long as told by your health care provider. 6.After the sitz bath, pat yourself dry. Do not rub your skin to dry it. 7.Clean and dry the basin between uses. 8.Discard the basin if it cracks, or according to the vending mechanic's instructions. Contact a health care provider if: Your pain or itching gets worse. Do not continue with sitz baths if your symptoms get worse. You have new symptoms. Do not continue with sitz baths until you talk with your health care provider. Summary A sitz bath is a warm water bath in which the water only comes up to your hips and covers your buttocks. A sitz bath may help relieve pain and discomfort after delivering a baby. It also may help with pain and itching from hemorrhoids or anal fissures, or pain after certain surgeries. It can also help to relax muscles that are sore or tight. Take 3 4 sitz baths a day, or as many as told by your health care provider. Soak in the water for 15 20 minutes. Do not continue with sitz baths if your symptoms get worse. This information is not intended to replace advice given to you by your health care provider. Make sure you discuss any questions you have with your health care provider. Document Revised: 10/25/2020 Document Reviewed: 10/27/2020 [employer] Patient Education 2022 [employer] 11/05/2022 11:01:27 Testicular Self-Exam Testicular Self-Exam A self-examination of your testicles (testicular self-exam) involves looking at and feeling your testicles for abnormal lumps or swelling. Several things can cause swelling, lumps, or pain in your testicles. Some of these causes are: Injuries. Inflammation. Infection. Buildup of fluids around the testicle (hydrocele). Twisted testicles (testicular torsion). Testicular cancer. You may be at risk for testicular cancer if you have: ?An undescended testicle (cryptorchidism). ?A history of previous testicular cancer. ?A family history of testicular cancer. General tips and recommendations The testicles are easiest to examine after a warm bath or shower. They are more difficult to examine when you are cold because the muscles attached to the testicles retract and pull them up higher or into the abdomen. A normal testicle is egg-shaped and feels firm. It is smooth and not tender. It is normal to feel a firm, spaghetti-like cord at the back of your testicle. This is the spermatic cord. How to do a testicular self-exam 1.Stand and hold your penis away from your body. 2.Look at each testicle to check for changes in appearance, such as swelling or changes in size or shape. 3.Roll each testicle between your thumb and forefinger, feeling the entire testicle. Feel for: Lumps. Swelling. Discomfort. 4.Check the groin area between your abdomen and upper thighs on both sides of your body. Look and feel for any swelling or bumps that are tender. These could be enlarged lymph nodes. Contact a health care provider if: You find any bumps or lumps, such as a small, hard, pea-sized lump. You find swelling, pain, or soreness. You see or feel any other changes in your testicles. Summary A self-examination of your testicles (testicular self-exam) involves looking at and feeling your testicles for any changes. Check each of your testicles for lumps, swelling, or discomfort. These changes can be caused by many things. Check for swelling or tender bumps in your groin area between your lower abdomen and upper thighs. This information is not intended to replace advice given to you by your health care provider. Make sure you discuss any questions you have with your health care provider. Document Revised: 01/18/2020 Document Reviewed: 01/18/2020 [employer] Patient Education 2022 [employer] Follow Up Care 10/30/2022 11:52:51 With:JOAQUIN TENA, Sergio Morrison, URL Address: [facility] [address] , [place] [address]- When:Within 2 Month(s) Comments:w/Scrotal US [facility] Evaluation + Plan note Note Date & Type Note Facility Evaluation + Plan note Future Appointments Appointment Date:01/07/2023 10:30:00 AM Scheduled Provider:Sergio NUÑEZ MD Location:[facility] Appointment Type:URO Office Visit [facility] Evaluation note Note Date & Type Note Facility Evaluation note Diagnosis Onset Date Dysphagia acute JEWELS (generalized anxiety disorder) acute Insomnia acute [facility] Work Phone: History general Narrative - Reported Note Date & Type Note Facility History general Narrative - Reported Type Medical History Palpitations Surgical History No know Surgical history [facility] Other Hospital course Narrative Note Date & Type Note Facility Hospital course Narrative No data available for this section [facility] note Note Date & Type Note Facility [facility] note No data available for this section [facility] Summary Purpose Family History No Family History Records Found Advance Directives Advance Directive Response Recorded Date/ Time Advance Directives No March 25, 2023 5:09pm Chief Complaint and Reason for Visit Chief Complaint very tired Reason for Visit Dysphagia JEWELS (generalized anxiety disorder) Insomnia Additional Source Comments Patient Care team informatio n (unrecognized section and content) Team Status: Active Member Role Status Dates Grzegorz Castaneda DO Primary Care Provider Active Team Status: Inactive Member Role Status Dates Grzegorz Castaneda DO Primary Care Provide r, Attending Provider Active Start: July 04, 2023 End: July 04, 2023 REASON FOR VISIT (unrecogniz ed section and content) Wellness (unrecognized sect ion and content) No Status Records Found INFORMATION SOURCE (unrecogn ized section and content) DATE CREATED AUTHOR 01/09/2023 [facility] Goals (unrecognized section and content) Goals may be documented in a n alternate section FOR RECORDS PERTAINING TO PATIENTS WHO ARE OR HAVE BEEN ENROLLED IN A CHEMICAL DEPENDENCY/SUBSTANCEABUSE PROGRAM, SOME INFORMATION MAY BE OMITTED. This clinical summary was aggregated from multiple sources. Caution should be exercised in using it in the provision of clinical care. This summary normalizes information from multiple sources, and as a consequence, information in this document may materially change the coding, format and clinical context of patient data. In addition, data may be omitted in some cases. CLINICAL DECISIONS SHOULD BE BASED ON THE PRIMARY CLINICAL RECORDS. [facility]. provides no warranty or guarantee of the accuracy or completeness of information in this document.
[2023-07-13 04:11] LABS: Testosterone 412 ng/dL (264-916)
== END 2023-07-12 07:13 | disposition home or self-care (01) ==
LOC: LAB 07:12
PROVIDERS: PCP Internal Medicine; Visit Provider Internal Medicine
DX: R53.83 Other fatigue (principal)
CPT/HCPCS: 36415; 84403